=== PATIENT | male | born 1975 | race Caucasian/White ===

== ENCOUNTER → 2019-09-10 13:05 | Outpatient (BNVA) | payer MEDICAID, SELFPAY | PROVIDERS: Family Provider Family Medicine; PCP Family Medicine; Visit Provider Nurse Practitioner | DX: F25.0 Schizoaffective disorder, bipolar type (principal) | CPT/HCPCS: 99213 ==

== ENCOUNTER → 2019-12-06 07:27 | Outpatient (BNVA) | payer MEDICAID, SELFPAY | PROVIDERS: Family Provider Family Medicine; PCP Family Medicine; Visit Provider Nurse Practitioner | DX: F25.0 Schizoaffective disorder, bipolar type (principal) | CPT/HCPCS: 99214 ==

== ENCOUNTER 2019-12-20 08:24 | Outpatient (CLI) | payer MEDICAID, SELFPAY ==
--- NOTE | 2019-12-20 08:41 | MR_ITS ---
WS: [id number] MRI HEAD WITH CONTRAST TECHNIQUE: Sagittal T1, T2 axial, T2 axial FLAIR, axial susceptibility weighted imaging, axial diffus ion weighted images, and coronal T2 images were obtained. Pre and post-T1 axial and post T1 coronal i mages. ADC and FSPGR images. CLINICAL INFORMATION: MEMORY LOSS COMPARISON: CT October 02, 2013 FINDINGS: No evidence of restricted diffusion to suggest acute ischemia. Ventricular system and basal cisterns are patent. Mild small vessel changes. Moderate parenchymal volume loss. Mastoid air cells and parana elvie sinuses are well aerated. No hemosiderin on susceptibly weighted images. No abnormal gadolinium e nhancement. Normal optic chiasm and pituitary infundibulum. No abnormal intracranial enhancement.Temporal lobes a nd hippocampal formations demonstrate mild symmetric atrophy. MR/MR head wo/w con [id number] IMPRESSION: 1. No evidence of restricted diffusion to suggest acute ischemia. 2. Mild small vessel changes with moderate parenchymal volume loss worse in th e parietal lobes. 3. Temporal lobes and hippocampal formations demonstrate mild symmetric atroph y. 4. No abnormal gadolinium enhancement.
== END 2019-12-20 08:25 | disposition home or self-care (01) ==
LOC: RADWPI 08:28
PROVIDERS: Family Provider Family Medicine; PCP Family Medicine; Visit Provider Family Medicine
DX: R41.3 Other amnesia (principal)
CPT/HCPCS: 70553; A9579

== ENCOUNTER → 2020-01-18 07:44 | Outpatient (BNVA) | payer MEDICAID, SELFPAY | PROVIDERS: Family Provider Family Medicine; PCP Family Medicine; Visit Provider Nurse Practitioner | DX: F25.0 Schizoaffective disorder, bipolar type (principal) | CPT/HCPCS: 99214 ==

== ENCOUNTER → 2020-03-14 08:50 | Outpatient (BNVA) | payer MEDICAID, SELFPAY | PROVIDERS: Family Provider Family Medicine; PCP Family Medicine; Visit Provider Family Medicine | DX: I10 Essential (primary) hypertension (principal); F17.219 Nicotine dependence, cigarettes, with unspecified nicotine-induced disorders | CPT/HCPCS: 80053; 80061; 82044; 85025 ==

== ENCOUNTER → 2020-04-10 10:40 | Outpatient (BNVA) | payer MEDICAID, SELFPAY | PROVIDERS: Family Provider Family Medicine; PCP Family Medicine; Visit Provider Nurse Practitioner | DX: F25.0 Schizoaffective disorder, bipolar type (principal) | CPT/HCPCS: 99213 ==

== ENCOUNTER → 2020-06-05 07:51 | Outpatient (BNVA) | payer MEDICAID, SELFPAY | PROVIDERS: Family Provider Family Medicine; PCP Family Medicine; Visit Provider Nurse Practitioner | DX: F25.0 Schizoaffective disorder, bipolar type (principal); F41.1 Generalized anxiety disorder | CPT/HCPCS: 99214 ==

== ENCOUNTER → 2020-06-16 17:04 | Outpatient (BNVA) | payer MEDICAID, SELFPAY | PROVIDERS: Family Provider Family Medicine; PCP Family Medicine; Visit Provider Nurse Practitioner Family | DX: Z11.59 Encounter for screening for other viral diseases (principal) | CPT/HCPCS: 87635 ==

== ENCOUNTER → 2020-07-14 08:18 | Outpatient (BNVA) | payer MEDICAID, SELFPAY | PROVIDERS: Family Provider Family Medicine; PCP Family Medicine; Visit Provider Nurse Practitioner | DX: F25.0 Schizoaffective disorder, bipolar type (principal); F17.219 Nicotine dependence, cigarettes, with unspecified nicotine-induced disorders | CPT/HCPCS: 99213 ==

== ENCOUNTER → 2020-08-25 08:12 | Outpatient (BNVA) | payer MEDICAID, SELFPAY | PROVIDERS: Family Provider Family Medicine; PCP Family Medicine; Visit Provider Nurse Practitioner | DX: F25.0 Schizoaffective disorder, bipolar type (principal); F17.219 Nicotine dependence, cigarettes, with unspecified nicotine-induced disorders | CPT/HCPCS: 99213 ==

== ENCOUNTER → 2020-10-21 08:01 | Outpatient (BNVA) | payer MEDICAID, SELFPAY | PROVIDERS: Family Provider Family Medicine; PCP Family Medicine; Visit Provider Nurse Practitioner | DX: F25.0 Schizoaffective disorder, bipolar type (principal); F17.219 Nicotine dependence, cigarettes, with unspecified nicotine-induced disorders | CPT/HCPCS: 99214 ==

== ENCOUNTER → 2021-01-13 13:32 | Outpatient (BNVA) | payer MEDICAID, SELFPAY | PROVIDERS: Family Provider Family Medicine; PCP Family Medicine; Visit Provider Nurse Practitioner | DX: F25.0 Schizoaffective disorder, bipolar type (principal); F17.219 Nicotine dependence, cigarettes, with unspecified nicotine-induced disorders | CPT/HCPCS: 99214 ==

== ENCOUNTER → 2021-01-29 14:11 | Outpatient (BNVA) | payer MEDICAID, SELFPAY | PROVIDERS: Family Provider Family Medicine; PCP Family Medicine; Visit Provider Family Medicine | DX: I10 Essential (primary) hypertension (principal); E78.1 Pure hyperglyceridemia; R35.1 Nocturia; F17.219 Nicotine dependence, cigarettes, with unspecified nicotine-induced disorders | CPT/HCPCS: 80053; 80061; 82043; 84153; 85025 ==

== ENCOUNTER → 2021-02-26 13:20 | Outpatient (BNVA) | payer MEDICAID, SELFPAY | PROVIDERS: Family Provider Family Medicine; PCP Family Medicine; Visit Provider Family Medicine | DX: R73.9 Hyperglycemia, unspecified (principal); I10 Essential (primary) hypertension; E78.5 Hyperlipidemia, unspecified; F17.219 Nicotine dependence, cigarettes, with unspecified nicotine-induced disorders | CPT/HCPCS: 83036 ==

== ENCOUNTER → 2021-03-10 14:05 | Outpatient (BNVA) | payer MEDICAID, SELFPAY | PROVIDERS: Family Provider Family Medicine; PCP Family Medicine; Visit Provider Nurse Practitioner | DX: F25.0 Schizoaffective disorder, bipolar type (principal); F12.20 Cannabis dependence, uncomplicated | CPT/HCPCS: 99214 ==

== ENCOUNTER → 2021-05-05 07:41 | Outpatient (BNVA) | payer MEDICAID, SELFPAY | PROVIDERS: Family Provider Family Medicine; PCP Family Medicine; Visit Provider Social Worker | DX: F25.0 Schizoaffective disorder, bipolar type (principal) | CPT/HCPCS: 90834 ==

== ENCOUNTER → 2021-05-13 12:43 | Outpatient (BNVA) | payer MEDICAID, SELFPAY | PROVIDERS: Family Provider Family Medicine; PCP Family Medicine; Referring Provider Family Medicine; Visit Provider Specialist | DX: G56.21 Lesion of ulnar nerve, right upper limb (principal); F17.210 Nicotine dependence, cigarettes, uncomplicated | CPT/HCPCS: 95908 ==

== ENCOUNTER → 2021-05-25 10:34 | Outpatient (BNVA) | payer MEDICAID, SELFPAY | PROVIDERS: Family Provider Family Medicine; PCP Family Medicine; Visit Provider Family Medicine | DX: E78.5 Hyperlipidemia, unspecified (principal); I10 Essential (primary) hypertension | CPT/HCPCS: 80053; 80061 ==

== ENCOUNTER → 2021-05-26 08:26 | Outpatient (BNVA) | payer MEDICAID, SELFPAY | PROVIDERS: Family Provider Family Medicine; PCP Family Medicine; Visit Provider Social Worker | DX: F25.0 Schizoaffective disorder, bipolar type (principal) | CPT/HCPCS: 90834 ==

== ENCOUNTER → 2021-06-03 12:10 | Outpatient (BNVA) | payer MEDICAID, SELFPAY | PROVIDERS: Family Provider Family Medicine; PCP Family Medicine; Visit Provider Nurse Practitioner | DX: F25.0 Schizoaffective disorder, bipolar type (principal); F12.20 Cannabis dependence, uncomplicated | CPT/HCPCS: 99214 ==

== ENCOUNTER → 2021-06-17 07:32 | Outpatient (BNVA) | payer MEDICAID, SELFPAY | PROVIDERS: Family Provider Family Medicine; PCP Family Medicine; Visit Provider Social Worker | DX: F25.0 Schizoaffective disorder, bipolar type (principal); F43.12 Post-traumatic stress disorder, chronic | CPT/HCPCS: 90834 ==

== ENCOUNTER → 2021-07-07 08:46 | Outpatient (BNVA) | payer MEDICAID, SELFPAY | PROVIDERS: Family Provider Family Medicine; PCP Family Medicine; Visit Provider Social Worker | DX: F25.0 Schizoaffective disorder, bipolar type (principal); F43.12 Post-traumatic stress disorder, chronic | CPT/HCPCS: 90834 ==

== ENCOUNTER → 2021-07-22 14:25 | Outpatient (BNVA) | payer MEDICAID, SELFPAY | PROVIDERS: Family Provider Family Medicine; PCP Family Medicine; Visit Provider Nurse Practitioner | DX: F25.0 Schizoaffective disorder, bipolar type (principal); F12.20 Cannabis dependence, uncomplicated | CPT/HCPCS: 99214 ==

== ENCOUNTER → 2021-07-29 08:37 | Outpatient (BNVA) | payer MEDICAID, SELFPAY | PROVIDERS: Family Provider Family Medicine; PCP Family Medicine; Visit Provider Social Worker | DX: F25.0 Schizoaffective disorder, bipolar type (principal) | CPT/HCPCS: 90832 ==

== ENCOUNTER → 2021-09-15 08:17 | Outpatient (BNVA) | payer MEDICAID, SELFPAY | PROVIDERS: Family Provider Family Medicine; PCP Family Medicine; Visit Provider Social Worker | DX: F25.0 Schizoaffective disorder, bipolar type (principal) | CPT/HCPCS: 90834 ==

== ENCOUNTER → 2021-09-16 14:18 | Outpatient (BNVA) | payer MEDICAID, SELFPAY | PROVIDERS: Family Provider Family Medicine; PCP Family Medicine; Visit Provider Nurse Practitioner | DX: F25.0 Schizoaffective disorder, bipolar type (principal); F12.20 Cannabis dependence, uncomplicated | CPT/HCPCS: 99214 ==

== ENCOUNTER → 2021-10-14 08:34 | Outpatient (BNVA) | payer MEDICAID, SELFPAY | PROVIDERS: Family Provider Family Medicine; Visit Provider Social Worker | DX: F25.0 Schizoaffective disorder, bipolar type (principal) | CPT/HCPCS: 90834 ==

== ENCOUNTER 2021-10-21 21:20 | Emergency (ER) | payer MEDICAID, SELFPAY ==
[2021-10-21 21:26] VITALS: BP 144/77; PULSE 87; RESP 18; TEMP 36.6; O2SAT 98; BMI 43.7
--- NOTE | 2021-10-21 21:33 | W.ED.BACK ---
HPI - Back Pain/Injury General: Chief Complaint: Back Pain/Injury Stated Complaint: back pain Time Seen by Provider: 10/21/21 21:33 History of Present Illness: 46-year-old male patient comes in with low back pain. Patient reports that he has a history of degenerative disc disease. Patient was working with his mother and lifting some things today and strained his low back. Patient reports pain is worse than normal. Patient was unable to control pain with medications from home. Patient appears nontoxic. Patient appears in moderate pain. Patient denies any fever, or difficult to bowel or bladder. Review of Systems General: Reports: 10 or more systems reviewed and unremarkable except in HPI and below Musc: Reports: back pain PFSH ED PFSH: Medical History Benign essential HTN Cannabis dependence, uncomplicated Chronic radicular pain of lower back Hypertriglyceridemia Idiopathic peripheral neuropathy Irritable bowel syndrome with constipation Psychiatric care Schizoaffective disorder, bipolar type Surgical History No pertinent past surgical history Family History Family/Other Cancer Uncle in dads side. Throat, Lung and Bone cancer Other CAD (coronary artery disease) Diabetes Stroke Social History Smoking and tobacco status: current every day smoker cigarettes Packs smoked per day: 1 Alcohol intake: current Alcohol intake frequency: holidays/special occasions only Physical Exam Const: COMMON NORMALS: alert HENMT: COMMON NORMALS: atraumatic HEAD & SCALP: atraumatic Neck/C-Spine: COMMON NORMALS: full ROM Resp: COMMON NORMALS: normal respiratory effort Cardio: COMMON NORMALS: regular rate and regular rhythm RATE: regular rate RHYTHM: regular rhythm Back/Pelvis: THORACIC SPINE/UPPER BACK: Yes paraspinal muscle tenderness LUMBAR SPINE/LOWER BACK: Yes paraspinal muscle tenderness Extremity: COMMON NORMALS: normal to inspection and no pedal edema Neuro: SENSORIUM/ORIENTATION: Yes alert Psych: COMMON NORMALS: cooperative Skin: COMMON NORMALS: no rashes or lesions noted GENERAL SKIN EXAM: no rashes or lesions noted Course Vital Signs: Vital signs: Vital Signs Temperature 98 F 10/21/21 21:26 Pulse Rate 87 10/21/21 21:26 Respiratory Rate 18 10/21/21 21:26 Blood Pressure 144/77 10/21/21 21:26 Pulse Oximetry 98 10/21/21 21:26 MDM - Back Pain/Injury Medical Decision Making 46-year-old male patient comes in today with low back pain. On exam patient had muscle tenderness from his mid to low back. No spinal tenderness is noted on palpation. Range of motion of the extremities is normal. Negative leg lift test. Respirations are even. Vital signs are normal except for mild elevation in blood pressure. Differential diagnosis includes intervertebral disc disease, facet arthropathy, lumbar strain. Feel the patient probably has a lumbar strain due to his lifting today. This is exacerbated his chronic medical problems. Patient was given Toradol and orphenadrine in the ER. Patient was written for a short course of hydrocodone with acetaminophen for his acute on chronic pain. Patient was also written for naproxen to help with pain and inflammation. Patient was encouraged to stay as active as he can in order to return to baseline much faster. Patient reported understanding of care plan with need for follow-up or return to the ER. Discharge Plan Discharge Patient Disposition: Home Clinical Impression: Strain of lumbar region Condition: Stable Prescriptions: New naproxen 500 mg tablet 500 mg PO BID Qty: 20 0RF hydrocodone-acetaminophen 5-325 mg tablet 1 tab PO Q6H PRN (Reason: pain (scale score 7-10)) Qty: 12 0RF No Action quetiapine [Seroquel] 200 mg tablet 500 mg PO .HS Qty: 75 1RF trazodone 50 mg tablet 50 mg PO .HS Qty: 30 1RF sulfamethoxazole-trimethoprim [Bactrim DS] 800-160 mg tablet 1 tab PO BID 7 Days Qty: 14 0RF lisinopril 40 mg tablet 40 mg PO DAILY Qty: 90 1RF gabapentin 800 mg tablet 800 mg PO TID Qty: 90 1RF tizanidine 6 mg capsule 6 mg PO TID Qty: 270 1RF fenofibrate nanocrystallized 145 mg tablet 145 mg PO DAILY 90 Days Qty: 90 0RF atorvastatin 20 mg tablet See Rx Instructions .ROUTE .COMPLEX 90 Days Qty: 90 0RF Dose Instruction: TAKE 1 TABLET BY MOUTH DAILY Rx Instructions: TAKE 1 TABLET BY MOUTH DAILY dicyclomine 20 mg tablet 20 mg PO QID Qty: 120 5RF Discharge Orders: Discharge ED (Routine); Ordered 10/21/21 Ordered By: Vignesh Trevizo Referrals: Aditi Velasquez DO [Primary Care Provider] - Discharge Diet: Usual diet Discharge Activity: Increase activity as tolerated Patient Instructions: Low Back Strain (ED), Opioid Safety Activity Restrictions/Additional Instructions: Use medication as directed. Drink plenty of water with medication. Continue with routine medications as ordered. Follow-up with primary care for further instruction. It is important to maintain normal activity as much as possible. Chronic back pain can often be exacerbated however by maintaining activity, you will return to normal faster. Return to the emergency department for new concerns. Coding Level of Care Code ED Machine Builder for Fawad Mehta
[2021-10-21] MEDS: orphenadrine 30 mg/mL Inj 2 mL 60 MG IM (21:52)
[2021-10-21] MEDS: ketorolac 60 mg/2 mL INJ IM (21:52)
[2021-10-21] MEDS: HYDROcodone-acetaminophen 5-325 mg Tablet 2 TAB PO (21:52)
== END 2021-10-21 22:02 | disposition home or self-care (01) ==
PROVIDERS: Emergency Provider Nurse Practitioner Family; PCP Family Medicine
DX: S39.012A Strain of muscle, fascia and tendon of lower back, initial encounter (principal); I10 Essential (primary) hypertension; F17.210 Nicotine dependence, cigarettes, uncomplicated; X50.0XXA Overexertion from strenuous movement or load, initial encounter
CPT/HCPCS: 96372; 99283; J1885; J2360

== ENCOUNTER → 2021-11-02 07:51 | Outpatient (BNVA) | payer MEDICAID, SELFPAY | PROVIDERS: PCP Family Medicine; Visit Provider Social Worker | DX: F25.0 Schizoaffective disorder, bipolar type (principal) | CPT/HCPCS: 90834 ==

== ENCOUNTER → 2021-11-17 13:02 | Outpatient (BNVA) | payer MEDICAID, SELFPAY | PROVIDERS: PCP Family Medicine; Visit Provider Nurse Practitioner | DX: F25.0 Schizoaffective disorder, bipolar type (principal); F12.20 Cannabis dependence, uncomplicated | CPT/HCPCS: 99214 ==

== ENCOUNTER → 2021-11-26 08:14 | Outpatient (BNVA) | payer MEDICAID, SELFPAY | PROVIDERS: PCP Family Medicine; Visit Provider Social Worker | DX: F25.0 Schizoaffective disorder, bipolar type (principal) | CPT/HCPCS: 90834 ==

== ENCOUNTER 2021-12-06 13:02 | Emergency (ER) | payer MEDICAID, SELFPAY ==
[2021-12-06 13:05] VITALS: BP 170/100; PULSE 102; RESP 18; TEMP 36.6; O2SAT 98; BMI 43.2
--- NOTE | 2021-12-06 13:24 | ED_ITS ---
HPI - Back Pain/Injury General: Chief Complaint: Back Pain/Injury Stated Complaint: BACK PAIN Time Seen by Provider: 12/06/21 13:05 Source: patient Mode of arrival: EMS Limitations: no limitations History of Present Illness: 86-year-old male presents to the emergency room with complaint of back pain. He has had chronic back pain in the past he has been referred to a pain clinic. He is on gabapentin and tizanidine he states that actually improves when he repositions and moves it is worse if he is sitting or standing for a period of time relates pain goes down his left leg he has been able to find positions of comfort. He does have some hydrocodone for the past as well as naproxen. He is not previously had back surgery no recent injury this is been a longstanding issue for him.He was seen for similar issue in the emergency room here about 6 weeks ago. MD elicited complaint: back pain Pertinent past history: prior back pain Onset (ago): hour(s) Timing: constant Similar Symptoms Previously: Yes Quality: sharp and spasming Location: lumbar spine Radiation: none Exacerbating factors: none Associated symptoms: Deny abdominal pain, arthralgias, chills, change in bowel habits, difficulty walking, dysuria, fatigue, fecal incontinence, fever(s), hematuria, myalgias, nausea, numbness, syncope, tingling/numbness/burning, urinary frequency, urinary urgency, vomiting or weakness Review of Systems Const: Denies: fever(s), chills or fatigue ENMT: Denies: throat pain, ear or mastoid pain, nasal discharge or nasal congestion Card: Denies: syncope Resp: Denies: dyspnea, productive cough or non-productive cough GI: Denies: abdominal pain, nausea, vomiting, fecal incontinence or change in bowel habits : Denies: dysuria, urinary urgency or hematuria Skin/Breast: Denies: rash or pruritus Neuro: Denies: difficulty walking PFSH ED PFSH: Medical History Benign essential HTN Cannabis dependence, uncomplicated Chronic radicular pain of lower back Hypertriglyceridemia Idiopathic peripheral neuropathy Irritable bowel syndrome with constipation Psychiatric care Schizoaffective disorder, bipolar type Surgical History No pertinent past surgical history Family History Family/Other Cancer Uncle in dads side. Throat, Lung and Bone cancer Other CAD (coronary artery disease) Diabetes Stroke Social History Smoking and tobacco status: current every day smoker cigarettes Packs smoked per day: 1 Alcohol intake: current Alcohol intake frequency: holidays/special occasions only Physical Exam Const: COMMON NORMALS: no acute distress GENERAL APPEARANCE: cooperative and comfortable ORIENTATION/CONSCIOUSNESS: Yes awake, Yes oriented to person, Yes oriented to place and Yes oriented to time HENMT: COMMON NORMALS: normocephalic, atraumatic and hearing grossly normal bilaterally HEAD & SCALP: normocephalic and atraumatic Resp: COMMON NORMALS: normal respiratory effort, No retractions, No use of accessory muscles and clear to auscultation bilaterally AUSCULTATION: clear to auscultation bilaterally Cardio: COMMON NORMALS: regular rate, regular rhythm and No murmurs present (Cardio) RATE: regular rate RHYTHM: regular rhythm GI: COMMON NORMALS: Soft to palpation and No hepatosplenomegaly present AUSCULTATION: Yes normoactive bowel sounds PALPATION: Yes Soft to palpation, No Tenderness to palpation present (GI), No Guarding due to palpation present (GI) and Yes No hepatosplenomegaly present Extremity: COMMON NORMALS: normal to inspection, capillary refill normal, no clubbing, cyanosis or edema, no calf tenderness and no pedal edema OTHER: Dorsum plantar flexion preserved in left leg although somewhat weak and difficult to fully assess due to pain. Unable to do a straight leg raising test because patient would not even tolerate the earlier testing deep tendon reflexes +1 of 2 at the patellar tendon unable to elicit at the Achilles tendon sensation normal Neuro: SENSORIUM/ORIENTATION: Yes oriented to person, Yes oriented to place and Yes oriented to time Skin: COMMON NORMALS: no rashes or lesions noted GENERAL SKIN EXAM: no rashes or lesions noted Course Vital Signs: Vital signs: Vital Signs Temperature 97.8 F 12/06/21 13:05 Pulse Rate 102 H 12/06/21 13:05 Respiratory Rate 20 H 12/06/21 14:04 Blood Pressure 170/100 12/06/21 13:05 Pulse Oximetry 98 12/06/21 13:05 MDM - Back Pain/Injury Medical Decision Making Chronic low back pain with left leg radicular symptoms without evidence of cauda equina by history. Encourage patient to continue to follow-up with the pain clinic he has been seen and previously will discharge home with steroid taper. Continue his other previously prescribed medications. Medical Records I reviewed the patient's medical records. Discharge Plan Discharge Patient Disposition: Home Clinical Impression: Chronic back pain Condition: Stable Prescriptions: New prednisone 20 mg tablet 20 mg PO TID Qty: 15 0RF Rx Instructions: 1 p.o. 3 times daily x3 days, 1 p.o. twice daily x 2 days, 1 p.o. daily x2 days No Action trazodone 50 mg tablet 50 mg PO .HS Qty: 30 1RF quetiapine [Seroquel] 200 mg tablet 500 mg PO .HS Qty: 75 1RF lisinopril 40 mg tablet 40 mg PO DAILY Qty: 90 1RF tizanidine 6 mg capsule 6 mg PO TID Qty: 270 1RF fenofibrate nanocrystallized 145 mg tablet 145 mg PO DAILY 90 Days Qty: 90 0RF atorvastatin 20 mg tablet See Rx Instructions .ROUTE .COMPLEX 90 Days Qty: 90 0RF Dose Instruction: TAKE 1 TABLET BY MOUTH DAILY Rx Instructions: TAKE 1 TABLET BY MOUTH DAILY dicyclomine 20 mg tablet 20 mg PO QID Qty: 120 5RF gabapentin 800 mg tablet See Rx Instructions .ROUTE .COMPLEX Qty: 90 1RF Dose Instruction: TAKE 1 TABLET BY MOUTH THREE TIMES DAILY Rx Instructions: TAKE 1 TABLET BY MOUTH THREE TIMES DAILY naproxen 500 mg tablet 500 mg PO BID Qty: 20 0RF hydrocodone-acetaminophen 5-325 mg tablet 1 tab PO Q6H PRN (Reason: pain (scale score 7-10)) Qty: 12 0RF Discharge Orders: Discharge ED (Routine); Ordered 12/06/21 Ordered By: Juno Bill Referrals: Aditi Velasquez DO [Primary Care Provider] - Discharge Diet: Usual diet Discharge Activity: Limit activity as instructed Patient Instructions: Opioid Safety Activity Restrictions/Additional Instructions: Follow-up with your primary care doctor or pain clinic this coming week. Coding Level of Care Code ED Motel Front Desk Attendant for Fawad Mehta
[2021-12-06 14:04] VITALS: RESP 20
[2021-12-06] MEDS: morphine 4 mg/mL SDV 1 mL 6 MG IVP (14:04)
[2021-12-06] MEDS: ketorolac 30 mg/mL INJ IVP (14:09)
[2021-12-06] MEDS: orphenadrine 30 mg/mL Inj 2 mL 60 MG IM (14:09)
[2021-12-06] MEDS: dexamethasone 10 mg/mL INJ IM (14:10)
== END 2021-12-06 15:45 | disposition home or self-care (01) ==
PROVIDERS: Emergency Provider Family Medicine; PCP Family Medicine
DX: M54.50 Low back pain, unspecified (principal); G89.29 Other chronic pain; F17.210 Nicotine dependence, cigarettes, uncomplicated; I10 Essential (primary) hypertension
CPT/HCPCS: 96372; 96374; 96375; 99283; J1100; J1885; J2270; J2360

== ENCOUNTER → 2021-12-15 07:33 | Outpatient (BNVA) | payer MEDICAID, SELFPAY | PROVIDERS: PCP Family Medicine; Visit Provider Social Worker | DX: F25.0 Schizoaffective disorder, bipolar type (principal) | CPT/HCPCS: 90834 ==

== ENCOUNTER 2021-12-23 07:31 | Outpatient (CLI) | payer MEDICAID, SELFPAY ==
--- NOTE | 2021-12-23 07:45 | MR_ITS ---
WS: [id number] MRI LUMBAR SPINE NONCONTRAST TECHNIQUE: Sagittal T1, T2 and STIR imaging. Axial T1 and T2 imaging. CLINICAL INFORMATION: LUMBOSACRAL DISC DISORDER/SPONDYLOSIS COMPARISON: MRI 2016 FINDINGS: Mild lumbar curve. No acute compression. No high-grade central canal stenosis. Mild disc bulging lowe r cervical and upper thoracic spine more prominent at T2-T3 and T3-T4. L1-L2: Normal. L2-L3: Mild annular bulging. Mild facet arthropathy. Spinal canal and foramen are patent. L3-L4: Mild annular bulging. LEFT eccentric disc bulging with small foraminal protrusion. Mild LEFT f oraminal narrowing with slight impingement on the exiting LEFT L3 nerve root. This is unchanged since 2016. L4-L5: Mild annular bulging. LEFT foraminal protrusion impinges the exiting LEFT L4 nerve root with m oderate LEFT foraminal narrowing. This is new compared to 2016. Moderate facet arthropathy. RIGHT for amen is patent. L5-S1: Mild annular bulging. Mild facet arthropathy. Spinal canal and foramen are patent. Visualized pelvic bony structures: Normal. Paravertebral soft tissues: Normal. MR/MR lumbar spine wo con* [id number] IMPRESSION: 1. Mild lumbar curve. No acute compression. No high-grade central canal stenos is. 2. Prominent LEFT foraminal protrusion L4-L5 impinges the exiting LEFT L4 nerv e root with moderate LEFT foraminal narrowing. This is new from 2016. Recommend correlation LEFT L4 nerve root symptoms. 3. LEFT foraminal protrusion L3-L4 with impingement on the exiting LEFT L3 ner ve root unchanged since 2016 4. Moderate facet arthropathy L4-L5. 5. Small disc protrusions in the upper thoracic spine at T2-T3 and T3-T4
== END 2021-12-23 07:32 | disposition home or self-care (01) ==
LOC: RAD 07:33
PROVIDERS: PCP Family Medicine; Visit Provider Family Medicine
DX: M51.17 Intervertebral disc disorders with radiculopathy, lumbosacral region (principal); M47.817 Spondylosis without myelopathy or radiculopathy, lumbosacral region
CPT/HCPCS: 72148

== ENCOUNTER → 2022-01-06 07:34 | Outpatient (BNVA) | payer MEDICAID, SELFPAY | PROVIDERS: PCP Family Medicine; Visit Provider Social Worker | DX: F25.0 Schizoaffective disorder, bipolar type (principal) | CPT/HCPCS: 90791 ==

== ENCOUNTER → 2022-01-12 12:44 | Outpatient (BNVA) | payer MEDICAID, SELFPAY | PROVIDERS: PCP Family Medicine; Visit Provider Nurse Practitioner | DX: F25.0 Schizoaffective disorder, bipolar type (principal); F12.20 Cannabis dependence, uncomplicated; F17.219 Nicotine dependence, cigarettes, with unspecified nicotine-induced disorders | CPT/HCPCS: 99214 ==

== ENCOUNTER 2022-01-19 08:10 | Outpatient (CLI) | payer OTHER, SELFPAY ==
--- NOTE | 2022-01-19 08:23 | XR_ITS ---
WS: [id number] LUMBAR SPINE TECHNIQUE: 3 views of the lumbar spine CLINICAL INFORMATION: BACK PAIN COMPARISON: FINDINGS: Five [id number] lumbar vertebral bodies. Mild lumbar curve convex LEFT. Slight retrolisthesis L3 on L4 measuring 3 mm. Slight retrolisthesis L4 on L5 measuring 2.2 mm. Disc space heights are well p reserved. Mild disc space narrowing L2-L3. No compression fractures. Mild facet arthropathy L5-S1. Visualized sacroiliac joints are normal. Normal visualized soft tissues. Partially visualized bowel g as pattern is normal. XR/XR lumbar spine 2-3V* [id number] IMPRESSION: 1. Mild lumbar curve convex LEFT. No acute compression fractures. 2. Slight retrolisthesis L3 on L4 and L4 on L5 as described above. 3. Mild disc space narrowing L2-L3. 4. Mild facet arthropathy L5-S1.
== END 2022-01-19 08:11 | disposition home or self-care (01) ==
LOC: RAD 08:12
PROVIDERS: PCP Family Medicine; Visit Provider Dermatology
DX: Z02.71 Encounter for disability determination (principal)
CPT/HCPCS: 72100

== ENCOUNTER → 2022-02-02 07:27 | Outpatient (BNVA) | payer MEDICAID, SELFPAY | PROVIDERS: PCP Family Medicine; Visit Provider Social Worker | DX: F25.0 Schizoaffective disorder, bipolar type (principal) | CPT/HCPCS: 90832 ==

== ENCOUNTER → 2022-02-16 13:46 | Outpatient (BNVA) | payer MEDICAID, SELFPAY | PROVIDERS: PCP Family Medicine; Visit Provider Nurse Practitioner | DX: F25.0 Schizoaffective disorder, bipolar type (principal); F12.20 Cannabis dependence, uncomplicated; F17.219 Nicotine dependence, cigarettes, with unspecified nicotine-induced disorders | CPT/HCPCS: 99214 ==

== ENCOUNTER → 2022-02-23 07:45 | Outpatient (BNVA) | payer MEDICAID, SELFPAY | PROVIDERS: PCP Family Medicine; Visit Provider Social Worker | DX: F25.0 Schizoaffective disorder, bipolar type (principal) | CPT/HCPCS: 90834 ==

== ENCOUNTER → 2022-03-12 13:58 | Outpatient (BNVA) | payer MEDICAID, SELFPAY | PROVIDERS: PCP Family Medicine; Visit Provider Family Medicine | DX: I10 Essential (primary) hypertension (principal); E78.5 Hyperlipidemia, unspecified | CPT/HCPCS: 80053; 80061; 85025 ==

== ENCOUNTER → 2023-03-24 08:25 | Outpatient (BNVA) | payer MEDICAID, SELFPAY | PROVIDERS: PCP Family Medicine; Visit Provider Family Medicine | DX: I10 Essential (primary) hypertension (principal) | CPT/HCPCS: 80053; 80061; 82043; 85025 ==

== ENCOUNTER → 2024-04-30 08:29 | Outpatient (BNVA) | payer MEDICAID, SELFPAY | PROVIDERS: PCP Family Medicine | DX: I10 Essential (primary) hypertension (principal); E78.5 Hyperlipidemia, unspecified | CPT/HCPCS: 80053; 80061; 85025 ==

== ENCOUNTER → 2024-05-04 08:50 | Outpatient (BNVA) | payer MEDICAID, SELFPAY | PROVIDERS: PCP Family Medicine; Visit Provider Surgery | DX: K92.1 Melena (principal) | CPT/HCPCS: 99204 ==

== ENCOUNTER 2024-07-25 05:58 | Day surgery (SDC) | payer MEDICAID, SELFPAY ==
[2024-07-25 06:06] VITALS: BMI 35.9
[2024-07-25 06:11] VITALS: BP 169/138; PULSE 103; RESP 18; TEMP 36.1; O2SAT 96
[2024-07-25] MEDS: sodium chloride 0.9% 1,000 ML 30 ML IV (06:27)
--- NOTE | 2024-07-25 06:48 | ANES.PREANE2 ---
Pre-Anesthetic Assessment Height/Weight: Height 1.8 m Weight 117.027 kg Temp Pulse Resp BP Pulse Ox O2 Del Method 97 F L 103 H 18 169/138 96 Room Air 07/25/24 06:11 07/25/24 06:11 07/25/24 06:11 07/25/24 06:11 07/25/24 06:11 07/25/24 06:11 Preop Diagnosis: Hematochezia Operation Date: 07/25/24 07:00 Proposed Procedures p Colonoscopy 31500, G0106, K92.1(Not Applicable) - Levy London DO Familial anesthetic complications: none Was Beta North taken within 24 hours: N/A Was Clonidine taken within 24 hours: N/A Last intake: Intake Last Liquid Date 07/24/24 Last Liquid Time 23:00 Last Solid Date 07/23/24 Last Solid Time 23:00 Social Tobacco (2300 pipe 07/24, Marijuana use greater then a month prior.) Exam alert, oriented x 3, clear to auscultation bilaterally and regular rate & rhythm Airway Submandibular: within normal limits Cervical ROM: Other (chronic neck pain, surgery and injections recommended patient denied per patient.) Mallampati: Class I Dentition: chipped Comments: Comments: poor dentition visible decay, multiple missing. Pulmonary Asthma and Sleep Apnea (non-compliant with CPAP) CV/HEM Hypertension Hepatic None reported GI IBS Metabolic Hyperlipidemia and Morbid Obesity [facility] [place] Lower Back Pain Neuropsych Anxiety, Bipolar, Depression and Neuropathy SCHIZOAFFECTIVE DISORDER LISTED. Anesthetic Plan ASA status: 2 Anesthesia: MAC Medications/Allergies Home Medications Medication Instructions Recorded Confirmed Last Taken Type triamcinolone acetonide 0.1 % 1 applic topical BID #454 grams 09/30/22 07/23/24 07/23/24 Rx topical cream tizanidine 4 mg tablet See Rx Instructions .Route 04/26/24 07/23/24 07/23/24 Rx .COMPLEX #405 tabs bupropion HCl 150 mg 24 hr tablet, 150 mg PO QAM #30 tabs 06/22/24 07/23/24 07/23/24 Rx extended release (Wellbutrin XL) bupropion HCl 300 mg 24 hr tablet, 300 mg PO QAM #30 tabs 06/22/24 07/23/24 07/23/24 Rx extended release (Wellbutrin XL) quetiapine 200 mg tablet (Seroquel) 400 mg (2 x 200 mg) PO .HS #60 tabs 06/22/24 07/23/24 07/23/24 Rx atorvastatin 20 mg tablet 20 mg PO DAILY 07/23/24 07/23/24 07/23/24 History dicyclomine 20 mg tablet 20 mg PO DIRECTED 07/23/24 07/23/24 07/23/24 History fenofibrate nanocrystallized 145 145 mg PO DAILY 07/23/24 07/23/24 07/23/24 History mg tablet gabapentin 800 mg tablet 800 mg PO TID 07/23/24 07/23/24 07/23/24 History lisinopril 40 mg tablet 40 mg PO DAILY 07/23/24 07/23/24 07/23/24 History Allergies Allergy/AdvReac Type Severity Reaction Status Date / Time venom-honey bee Allergy Mild Unknown Verified 06/22/24 14:58 chlorpheniramine Allergy ALGY-Rash Verified 06/22/24 14:58 [From Actifed Cold-Allergy] phenylephrine Allergy ALGY-Rash Verified 06/22/24 14:58 [From Actifed Cold-Allergy] pseudoephedrine Allergy ALGY-Rash Verified 06/22/24 14:58 [From Actifed Cold-Allergy] triprolidine Allergy ALGY-Rash Verified 06/22/24 14:58 [From Actifed Cold-Allergy] varenicline [From Chantix] Allergy ADR-Anxiety Verified 06/22/24 14:58 Current Medications Generic Name Dose Route Start Last Admin Trade Name Freq PRN Reason Stop Dose Admin Sodium Chloride 1,000 mls @ 30 mls/hr 07/25/24 06:15 07/25/24 06:27 Sodium Chloride 0.9% IV 07/26/24 06:14 30 mls/hr .Q24H MARNI Administration PFSH Anesthesia Medical History Psychiatric care Cannabis dependence, uncomplicated Chronic radicular pain of lower back Benign essential HTN Idiopathic peripheral neuropathy Hypertriglyceridemia Irritable bowel syndrome with constipation Schizoaffective disorder, bipolar type Surgical History No pertinent past surgical history Family History Family/Other Cancer Uncle in dads side. Throat, Lung and Bone cancer Other CAD (coronary artery disease) Diabetes Stroke Social History Smoking and tobacco/nicotine status: current every day tobacco/nicotine user cigarettes Packs smoked per day: 1 and pipe Alcohol intake: current Alcohol intake frequency: holidays/special occasions only Substance/Drug Use: current Adopted: No service: No Current occupational exposures/hazards: Yes Data Anesthesia Cardiac Studies: No Data to Display
--- NOTE | 2024-07-25 07:00 | PM.HP ---
Providers/Chief Complaint Primary Care Provider: Jennifer Packer NP Chief Complaint: K92.1 History of Present Illness Vignesh Mas is a 48 year old male Review of Systems General: Reports: 10 or more systems reviewed and unremarkable except in HPI and below Medications/Allergies Home Medications Medication Instructions Recorded Confirmed Last Taken Type triamcinolone acetonide 0.1 % 1 applic topical BID #454 grams 09/30/22 07/23/24 07/23/24 Rx topical cream tizanidine 4 mg tablet See Rx Instructions .Route 04/26/24 07/23/24 07/23/24 Rx .COMPLEX #405 tabs bupropion HCl 150 mg 24 hr tablet, 150 mg PO QAM #30 tabs 06/22/24 07/23/24 07/23/24 Rx extended release (Wellbutrin XL) bupropion HCl 300 mg 24 hr tablet, 300 mg PO QAM #30 tabs 06/22/24 07/23/24 07/23/24 Rx extended release (Wellbutrin XL) quetiapine 200 mg tablet (Seroquel) 400 mg (2 x 200 mg) PO .HS #60 tabs 06/22/24 07/23/24 07/23/24 Rx atorvastatin 20 mg tablet 20 mg PO DAILY 07/23/24 07/23/24 07/23/24 History dicyclomine 20 mg tablet 20 mg PO DIRECTED 07/23/24 07/23/24 07/23/24 History fenofibrate nanocrystallized 145 145 mg PO DAILY 07/23/24 07/23/24 07/23/24 History mg tablet gabapentin 800 mg tablet 800 mg PO TID 07/23/24 07/23/24 07/23/24 History lisinopril 40 mg tablet 40 mg PO DAILY 07/23/24 07/23/24 07/23/24 History Allergies Allergy/AdvReac Type Severity Reaction Status Date / Time venom-honey bee Allergy Mild Unknown Verified 06/22/24 14:58 chlorpheniramine Allergy ALGY-Rash Verified 06/22/24 14:58 [From Actifed Cold-Allergy] phenylephrine Allergy ALGY-Rash Verified 06/22/24 14:58 [From Actifed Cold-Allergy] pseudoephedrine Allergy ALGY-Rash Verified 06/22/24 14:58 [From Actifed Cold-Allergy] triprolidine Allergy ALGY-Rash Verified 06/22/24 14:58 [From Actifed Cold-Allergy] varenicline [From Chantix] Allergy ADR-Anxiety Verified 06/22/24 14:58 PFSH Acute PFSH: Medical History Psychiatric care Cannabis dependence, uncomplicated Chronic radicular pain of lower back Benign essential HTN Idiopathic peripheral neuropathy Hypertriglyceridemia Irritable bowel syndrome with constipation Schizoaffective disorder, bipolar type Surgical History No pertinent past surgical history Family History Family/Other Cancer Uncle in dads side. Throat, Lung and Bone cancer Other CAD (coronary artery disease) Diabetes Stroke Social History Smoking and tobacco/nicotine status: current every day tobacco/nicotine user cigarettes Packs smoked per day: 1 and pipe Alcohol intake: current Alcohol intake frequency: holidays/special occasions only Substance/Drug Use: current Adopted: No service: No Current occupational exposures/hazards: Yes Vitals/I&O/Wt Last Vital Signs Temp 97 F L 07/25/24 06:11 Pulse 103 H 07/25/24 06:11 Resp 18 07/25/24 06:11 BP 169/138 07/25/24 06:11 Pulse Ox 96 07/25/24 06:11 O2 Del Method Room Air 07/25/24 06:11 Weight last 48 hrs Weight 258 lb A&P Assessment and plan (1) Hematochezia: Plan dIAGNOSTIC cOLONOSCOPY Attestations Medical Necessity Statement*: home Coding Level of Care Code Acute Code for Chg Fwd Diagnoses Hematochezia K92.1
[2024-07-25 07:24] VITALS: BP 105/80; PULSE 79; RESP 16; TEMP 36.1; O2SAT 97
[2024-07-25 07:47] VITALS: BP 125/99; PULSE 86; RESP 16; O2SAT 99
--- NOTE | 2024-07-25 08:05 | ANE.PACU2 ---
Inpatient post-anesthesia follow up: Airway intact: Yes Vital signs: Temperature 97 F Pulse Rate 86 Respiratory Rate 16 Blood Pressure 125/99 Pulse Oximetry 99 Oxygen Delivery Me thod Room Air Oxygen Flow Rate 3 Fraction of Inspir ed Oxygen Hydration adequate: Yes Nausea and vomiting: No Pain level: 1 Mental status: Baseline
== END 2024-07-25 08:05 | disposition home or self-care (01) ==
PROVIDERS: Visit Provider Surgery
PROC: 0DJD8ZZ Inspection of Lower Intestinal Tract, Via Natural or Artificial Opening Endoscopic (ICD-10-PCS; CPT 45378; principal; 2024-07-25 07:00)
DX: K92.1 Melena (principal); D12.3 Benign neoplasm of transverse colon; I10 Essential (primary) hypertension; F17.210 Nicotine dependence, cigarettes, uncomplicated; G47.30 Sleep apnea, unspecified; Z91.199 Patient's noncompliance with other medical treatment and regimen due to unspecified reason; E78.5 Hyperlipidemia, unspecified; E66.01 Morbid (severe) obesity due to excess calories; Z68.36 Body mass index [BMI] 36.0-36.9, adult; F25.9 Schizoaffective disorder, unspecified
CPT/HCPCS: 45385; 88305; J2704; J7030

== ENCOUNTER → 2024-08-06 14:39 | Outpatient (BNVA) | payer OTHER, SELFPAY | PROVIDERS: Visit Provider Surgery | DX: K92.1 Melena (principal); K64.8 Other hemorrhoids; D37.4 Neoplasm of uncertain behavior of colon | CPT/HCPCS: 99212 ==

== ENCOUNTER → 2024-10-09 13:45 | Outpatient (BNVA) | payer MEDICAID, SELFPAY | DX: E78.5 Hyperlipidemia, unspecified (principal); Z20.2 Contact with and (suspected) exposure to infections with a predominantly sexual mode of transmission | CPT/HCPCS: 80053; 80061; 87491; 87591 ==

== ENCOUNTER → 2025-03-05 09:05 | Outpatient (BNVA) | payer OTHER, SELFPAY | PROVIDERS: Visit Provider Nurse Practitioner | DX: F25.0 Schizoaffective disorder, bipolar type (principal); Z79.899 Other long term (current) drug therapy | CPT/HCPCS: 80061; 83036 ==

== ENCOUNTER 2025-08-21 13:35 | Outpatient (CLI) | payer MEDICAID, SELFPAY ==
[2025-03-06 14:29] VITALS: BP 106/68; BMI 28.5
--- NOTE | 2025-08-21 13:40 | XR_ITS ---
WS: [id number] Cervical spine, 3 views, 08/21/2025 Clinical Data: cervical pain Comparison: CT cervical spine, 10/02/2013 Findings: No compression fractures are seen. There is disc narrowing at C5-C6, C6-C7 and C7-T1. There is spurring of the vertebral bodies C3-C7. There is no prevertebral soft tissue swelling. The odontoid is unremarkable. The soft tissues of the neck and the lung apices are normal. XR/XR cervical spine 3V* [id number] Impression: 1. Degenerative disc narrowing at multiple levels. 2. Multilevel osteoarthritis.
== END 2025-08-21 13:36 | disposition home or self-care (01) ==
DX: M54.12 Radiculopathy, cervical region (principal); G89.29 Other chronic pain; M54.2 Cervicalgia; M47.892 Other spondylosis, cervical region
CPT/HCPCS: 72040; 99204